=== PATIENT | male | born 1965 | race African-American/Black ===

== ENCOUNTER 2020-03-28 23:07 | Emergency (ER) | payer OTHER ==
[~2020-03-28] VITALS: Ht 180.3 cm; Wt 81.7 kg
--- NOTE | ~2020-03-28 | EMS ---
[address] [address] EMS Patient Care Report Name: TESSA ZIMMER Room #: REG ANTHONY Franco#: [id number] Admission: 03/28/20 Attend Phys: Discharge: Date of : 69 Report #: [id number] THIS REPORT FOR: //name// Report Transmitted: 03/28/2020 22:47 EMS Care Summary [place], [place]/[facility] Incident [id number] @ 03/28/2020 22:22 Incident Location [address] [place] [address] DET Patient TESSA ZIMMER Male, 55 Years 1965 Patient Address [address] [place] [address] Patient History Hypertension (HTN),Alcohol Abuse, Patient Allergies No known allergies, Patient Medications None Reported, Chief Complaint CHEST PAIN Disposition Transported No Lights/[place] Dispatch Reason Sick Person Transported To [facility] Narrative DISPATCHED TO THE [facility] FOR A SICK. ARRIVED ON SCENE TO BE LED TO MALE PATIENT SITTING UPRIGHT IN [facility] CELL WHO WAS COMPLAINING OF LEFT ANTERIOR STABBING CHEST PAIN FOR 5 HOURS. HE WAS TRANSPORTED BY AMBULANCE EARLIER IN THE DAY FOR THE SAME ISSUE BUT CHOSE TO LEAVE THE HOSPITAL AMA BEFORE RECEIVING DIAGNOSES. [address] [address] EMS Patient Care Report Name: TESSA ZIMMER Room #: LILIA Franco#: [id number] Admission: 03/28/20 Attend Phys: Discharge: Date of : 69 Report #: [id number] HE COULD NOT EXPLAIN WHY HE LEFT. PATIENT WAS MOVED TO THE AMBULANCE IN A WHEELCHAIR AN ASSISTED IN MOVING OVER TO THE COT, SECURED WITH STRAPS, AND LIFTED INTO THE AMBULANCE. PATIENT VITALS AND A 12 LEAD WERE OBTAINED. AN IV WAS STARTED AND HE WAS ADMINISTERED ASPRIN AND NITRO. HE SAID HE IS NONCOMPLIANT WITH HIS HYPERTENSION MEDICATIONS FOR A MONTH. PATIENT WAS TRANSPORTED TO THE HOSPITAL VIT VITALS AND INTERVENTIONS MONITORED ENROUTE. UPON ARRIVAL PATIENT WAS MOVED INTO ED ROOM 5 ON THE COT AND ASSISTED IN MOVING OVER TO THE HOSPITAL BED. PATIENT CARE WAS TURNED OVER TO ED NURSING STAFF. Initial Vitals @22:53P: 77,CO: 7,SpO2: 94,MA Suspected: false @22:49P: 107, @22:51P: 82,BP: 161/96, @22:56P: 71,BP: 173/96,CO: 7,SpO2: 94, @22:42P: 88,BP: 195/114,SpO2: 100, @22:48P: 72,BP: 202/115, @22:41P: 67,SpO2: 100,MA Suspected: false @22:39P: 98,R: 18,BP: 179/91,Pain: 6/10,GCS: 15,Glucose: 90,CO: 5,SpO2: 100,Revised Trauma: 12, @22:45P: 71, @22:59P: 59,R: 18,BP: 187/89,Pain: 6/10,GCS: 15,CO: 10,SpO2: 95,Revised Trauma: 12, Assessments @22:55MENTAL:Person Oriented,Time Oriented,Event Oriented,Place Oriented,SKIN:Diaphoresis,HEENT:Head/Face: No Abnormalities,Neck/Airway: No Abnormalities,LUNG SOUNDS:General: No Abnormalities,Left Upper: No Abnormalities,Right Upper: No Abnormalities,Left Lower: No Abnormalities,Right Lower: No Abnormalities,ABDOMEN:General: No Abnormalities,Left Upper: No Abnormalities,Right Upper: No Abnormalities,Left Lower: No Abnormalities,Right Lower: No Abnormalities,PELVIS//GI:No Abnormalities,EXTREMITIES:Left Leg: Other,Left Arm: No Abnormalities,Right Arm: No Abnormalities,Right Leg: No Abnormalities,PULSE:Radial: 2+ Normal,NEURO:No Abnormalities, Impression Chest Pain / Discomfort Procedures @22:30ALS AssessmentResponse: UnchangedSucceeded@22:403-Lead ECGResponse: UnchangedSucceeded@22:46Saline Lock 10cc (20 ga) Site: Antecubital-LeftResponse: UnchangedSucceeded@22:50Aspirin - 324 Milligrams (mg) - OralResponse: Unchanged@22:49Nitrostat - 0.4 Milligrams (mg) - SublingualResponse: Unchanged@22:4112-Lead ECGResponse: UnchangedSucceeded@22:5312-Lead ECGResponse: UnchangedSucceeded [address] [address] EMS Patient Care Report Name: GORANNIDIATESSA Room #: LILIA Franco#: [id number] Admission: 03/28/20 Attend Phys: Discharge: Date of : 69 Report #: [id number] 22:22,Call Received 22:22,Dispatch Notified 22:22,Dispatched 22:24,En Route 22:26,On Scene 22:30,At Patient 22:30,ALS Assessment,Response: UnchangedSucceeded, 22:39,BP: 179/91 M,PULSE: 98,RR: 18 R,SPO2: 100 Ox,ETCO2: ,B,PAIN: 6,GCS: 15, 22:40,3-Lead ECG,Response: UnchangedSucceeded, 22:41,12-Lead ECG,Response: UnchangedSucceeded, 22:41,BP: / M,PULSE: 69,RR: R,SPO2: 100 Ox,ETCO2: ,BG: ,PAIN: ,GCS: , 22:42,BP: 195/114 M,PULSE: 88,RR: R,SPO2: 100 Ox,ETCO2: ,BG: ,PAIN: ,GCS: , 22:45,BP: / M,PULSE: 71,RR: R,SPO2: Ox,ETCO2: ,BG: ,PAIN: ,GCS: , 22:46,Saline Lock 10cc 20 ga Site: Antecubital-Left,Response: UnchangedSucceeded, 22:48,BP: 202/115 M,PULSE: 72,RR: R,SPO2: Ox,ETCO2: ,BG: ,PAIN: ,GCS: , 22:49,Nitrostat - 0.4 Milligrams (mg) - Sublingual,Response: Unchanged 22:49,BP: / M,PULSE: 107,RR: R,SPO2: Ox,ETCO2: ,BG: ,PAIN: ,GCS: , 22:50,Aspirin - 324 Milligrams (mg) - Oral,Response: Unchanged 22:51,BP: 161/96 M,PULSE: 82,RR: R,SPO2: Ox,ETCO2: ,BG: ,PAIN: ,GCS: , 22:52,Depart Scene 22:53,12-Lead ECG,Response: UnchangedSucceeded, 22:53,BP: / M,PULSE: 77,RR: R,SPO2: 94 Ox,ETCO2: ,BG: ,PAIN: ,GCS: , 22:56,BP: 173/96 M,PULSE: 71,RR: R,SPO2: 94 Ox,ETCO2: ,BG: ,PAIN: ,GCS: , 22:59,BP: 187/89 M,PULSE: 59,RR: 18 R,SPO2: 95 Ox,ETCO2: ,BG: ,PAIN: 6,GCS: 15, 23:03,At Destination 23:21,Call Closed Disclaimer v1.1 Copyright 2020 [employer] This EMS Care Summary contains data elements from the applicable legal record (which may be displayed differently). It is designed to provide pertinent information for the following purposes: continuity of care, clinical quality, and state data reporting. The complete legal record is available to ED staff and administrators of the receiving hospital in [employer] Patient Tracker. All data is provided "as is."
[2020-03-29 00:35] LABS: ABSOLUTE NEUTROPHILS 6.3 thou/uL (1.4-8.2); BASOPHILS 0.7 % (0.0-2.0); EOSINOPHILS 0.1 % (0.0-3.0); HEMOGLOBIN 13.9 gm/dL (14.0-18.0); LYMPHOCYTES 7.8 % (24.0-44.0); MCHC 33.9 g/dL (28.0-37.0); MCV 105.9 fL (80.0-100.0); MONOCYTES 10.6 % (1.0-8.0); PLATELET COUNT 296 thou/uL (150-400); POLYS 80.8 % (36.0-66.0); RBC 3.87 mil/uL (4.50-6.00); RDW 13.9 % (10.5-14.5); WBC 7.8 thou/uL (4.0-11.0)
[2020-03-29 00:47] LABS: URINE BILIRUBIN NEGATIVE (Negative); URINE BLOOD 2+ (Negative); URINE CLARITY CLEAR; URINE COLOR YELLOW; URINE GLUCOSE-RANDOM* NEGATIVE (Negative); URINE KETONES 1+ (Negative); URINE LEUKOCYTES-REFLEX NEGATIVE (Negative); URINE NITRITE-REFLEX NEGATIVE (Negative); URINE PROTEIN (DIPSTICK) 1+ (Negative); URINE SPECIFIC GRAVITY >= 1.030 (1.005-1.035)
[2020-03-29 00:48] LABS: ANION GAP 17 mmol/L (7-16); BUN 5 mg/dL (7-18); CALCIUM 8.9 mg/dL (8.5-10.1); CHLORIDE 97 mmol/L (98-107); CO2 25 mmol/L (21-32); CREATININE 0.8 mg/dL (0.7-1.3); GLUCOSE 108 mg/dL (74-106); SODIUM 139 mmol/L (136-145)
[2020-03-29 00:55] LABS: TROPONIN-I <0.06 ng/mL (<0.06)
[2020-03-29 00:57] LABS: AMP/METHAMP Negative (Negative); BARBITURATES Negative (Negative); BENZODIAZEPINES Negative (Negative); COCAINE Negative (Negative); METHADONE Negative (Negative); OPIATES Negative (Negative); PCP Negative (Negative)
[2020-03-29 01:11] LABS: BACTERIA-REFLEX 1-9 Few /HPF (None Seen); CASTS None Seen /LPF (None Seen); CRYSTALS None Seen /LPF (None Seen); MUCUS 0-3 Light strn/LPF (None Seen); SQUAMOUS 0-3 Few /LPF (0-3); URINE RBC 3-10 Few /HPF (0-2); URINE WBC-REFLEX 0-5 Rare /HPF (0-5)
[2020-03-29 02:17] VITALS: BP 198/101
--- NOTE | 2020-03-29 07:58 | EKG ---
[facility] [place] [address] ELECTROCARDIOGRAM REPORT Name: TESSA ZIMMER Room #: DEP [facility]#: [id number] Admission: 03/28/20 Attend Phys: Discharge: 03/29/20 Date of : 69 Report #: [id number] THIS REPORT FOR: cc: NO FAMILY PHYSICIAN or PCP NO FAMILY PHYSICIAN or PCP Modesto Kent MD [facility] ~ THIS REPORT FOR: //name// [facility] ED Test Date: 2020-03-28 Test Time: 23:24:15 Pat Name: TESSA ZIMMER Department: Room: Gender: Litigation Legal Assistant: [place] [address] : 1965 Requested By: Felicity Thibodeaux Order Number: [id number] MD: Modesto Kent Measurements Intervals [place] Rate: 64 P: 54 WI: 133 QRS: 61 QRSD: 103 T: 62 QT: 451 QTc: 466 Interpretive Statements Sinus rhythm No significant abnormality No previous ECG available for comparison Electronically Signed On 03-29-2020 7:58:43 CDT by Modesto Kent [email or web address] <ELECTRONICALLY SIGNED> By: Modesto Kent MD, [facility] 03/29/20 [id number] Modesto Kent MD, FACC /EPI
== END 2020-03-29 02:19 | disposition home or self-care (01) ==
LOC: ER 23:07
PROVIDERS: Emergency Medicine
DX: R07.9 Chest pain, unspecified (principal); R61 Generalized hyperhidrosis; M25.512 Pain in left shoulder; R06.02 Shortness of breath; E11.9 Type 2 diabetes mellitus without complications; I10 Essential (primary) hypertension